=== PATIENT | female | born 1955 | race Caucasian/White ===

== ENCOUNTER → 2018-06-10 | Outpatient (CLI) | payer BC ==
--- NOTE | 2018-06-10 15:58 | RADIOLOGY REPORT (SQ) ---
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 RADIONUCLIDE AND DOSE: 21.7 millicuries Tc99m MDP. The route of agent administration: Intravenous. ADDITIONAL DRUGS AND DOSES: None. TECHNIQUE: Routine delayed images at 3 HOURS post radionuclide injection acquired of the bony skelet on including anterior and posterior whole-body projections and additional focused images as needed. LIMITATIONS: None. FINDINGS: BONES: Increased uptake is seen at the bilateral knees, and along the right T11 costoverte bral joint and right T12-L1 facet joint. Increased uptake at the bilateral feet and ankles. These a re in characteristic areas for osteoarthritis. Increased uptake in the sternum is present, abnormal but nonspecific. This could represent metastati c disease. There is increased uptake at the S1 level in the midline. This could be related to degenerative disc changes at L5-S1, or bony metastatic disease at the S1 level. KIDNEYS: Symmetric excretion without obstruction. OTHER: No other significant finding. IMPRESSION: Sternal and S1 bony uptake, may represent metastatic disease. Other areas of increased uptake are in characteristic locations of osteoarthritis COMMENT: Quality measure 147: No available prior imaging studies for comparison TECHNICAL DOCUMENTATION: JOB ID: [id number] [employer]- All Rights Reserved Reading location - IP/workstation name: [email or web address]
== END ==
LOC: RAD 10:33
PROVIDERS: ATTEND Internal Medicine Hematology & Oncology
DX: C50.811 Malignant neoplasm of overlapping sites of right female breast (principal)
CPT/HCPCS: 78306; A9561; Q9969

== ENCOUNTER → 2018-06-14 | Outpatient (CLI) | payer BC ==
--- NOTE | 2018-06-14 09:14 | RADIOLOGY REPORT (SQ) ---
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 TECHNIQUE: CT scan of the chest performed using helical scanning technique with dynamic intravenous contrast injection. Images reviewed with lung, soft tissue and bone windows. Reconstructed coronal a nd sagittal MPR images reviewed. All images stored on PACS. CT scan of the abdomen and pelvis performed with intravenous and with oral contrastusing helical scan sonam technique with dynamic intravenous contrast injection. Images reviewed with lung, soft tissue a nd bone windows. Reconstructed coronal and sagittal MPR images reviewed. Delayed images for evaluat ion of the urinary system also acquired and evaluated. All images stored on PACS. All CT scanners at this facility use dose modulation, iterative reconstruction, and/or weight based d osing when appropriate to reduce radiation dose to as low as reasonably achievable (ALARA). [facility]: Dose Right [facility]: CareDose [facility]: Dose Right [facility]: Teradose 4D [facility]: [employer] RADIATION DOSE: CT Rad equipment meets quality standard of care and radiation dose reduction techniq ues were employed. CTDIvol: 17.9 - 23.6 mGy. DLP: 3260 mGy-cm. . LIMITATIONS: None. FINDINGS: CHEST: LUNGS AND PLEURA: No opacities, nodules, masses. No pneumothorax. No effusions. HILAR AND MEDIASTINAL STRUCTURES: No identified masses or abnormal nodes. HEART AND VASCULAR STRUCTURES: No aneurysm or dissection. No central pulmonary emboli. No pericardi al effusion. HARDWARE: None. THYROID AND OTHER SOFT TISSUES: Right breast is diffusely abnormal, with skin thickening and nipple r etraction, with a plaque-like area of retroareolar tumor similar compared to 02/19/2018. BONES: Bony sclerosis in the rightward half of the T11 vertebral body and sternum from metastatic dis ease, similar compared to 02/19/2018 OTHER: No other significant finding. ABDOMEN AND PELVIS: LIVER: Normal size. No masses. No dilated ducts. SPLEEN: Normal size. No focal lesions. PANCREAS: No masses. No significant calcifications. No adjacent inflammation or peripancreatic fluid collections. Pancreatic duct not dilated. GALLBLADDER: Surgically absent ADRENAL GLANDS: No significant masses or asymmetry. RIGHT KIDNEY AND URETER: No solid masses. No significant calcification. No hydronephrosis or hydroure ter. LEFT KIDNEY AND URETER: No solid masses. No significant calcification. No hydronephrosis or hydrouret er. AORTA AND VESSELS: No aneurysm. No dissection. Renal arteries, SMA, celiac without stenosis. RETROPERITONEUM: No retroperitoneal adenopathy, hemorrhage or masses. BOWEL AND PERITONEAL CAVITY: Patient drank oral contrast. No CT evidence of bowel obstruction or luis e intraperitoneal air or fluid. Scattered colonic diverticuli without CT signs of acute diverticulit is APPENDIX: Not identified, surgically absent ABDOMINAL WALL: Right upper quadrant 1.7 cm abdominal wall defect axial image 42. Mesenteric/omental fat protrudes through the defect. No bowel in the hernia sac PELVIS: Post hysterectomy. Profound pelvic floor insufficiency. No masses or adenopathy. BONES: Sclerosis in the rightward half of the L1 vertebral body, midline S1 level and right ischium f rom bony metastatic disease, unchanged from 02/19/2018 OTHER: No other significant finding. IMPRESSION: Locally advanced right breast cancer with nipple retraction and plaque-like mass in the right retroareolar region Bony metastatic disease in the sternum, T11, L1, S1, and ischium Post cholecystectomy hysterectomy and appendectomy. Right upper quadrant fat containing hernia TECHNICAL DOCUMENTATION: JOB ID: [id number] Quality ID # 436: Final reports with documentation of one or more dose reduction techniques (e.g., Au tomated exposure control, adjustment of the mA and/or kV according to patient size, use of iterative reconstruction technique) 2010 [employer]- All Rights Reserved Reading location - IP/workstation name: [email or web address]
--- NOTE | 2018-06-14 09:20 | RADIOLOGY REPORT (SQ) ---
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 TECHNIQUE: Axial images acquired through the brain with intravenous contrast. Images reviewed with b one, brain and subdural windows. Additional sagittal and coronal reconstructions were generated. Brenna ges stored on PACS. All CT scanners at this facility use dose modulation, iterative reconstruction, and/or weight based d osing when appropriate to reduce radiation dose to as low as reasonably achievable (ALARA). [facility]: Dose Right [facility]: CareDose [facility]: Dose Right [facility]: Teradose 4D [facility]: [employer] CONTRAST TYPE AND DOSE: 100 mL IV Omnipaque 350- low osmolar. RENAL FUNCTION: GFR > 60. RADIATION DOSE: CT Rad equipment meets quality standard of care and radiation dose reduction techniq ues were employed. CTDIvol: 48.6 mGy. DLP: 930 mGy-cm.. LIMITATIONS: None. FINDINGS: VENTRICLES: Normal size and contour. CEREBRUM: No masses. No hemorrhage. No midline shift. Normal meeks/white matter differentiation. No ev idence for acute infarction. No enhancing lesions. CEREBELLUM: No masses. No hemorrhage. No alteration of density. No evidence for acute infarction. No enhancing lesions. EXTRA-AXIAL SPACES: No fluid collections. No enhancing lesions. ORBITS AND GLOBE: No intra- or extraconal masses. Normal contour of globe without masses. CALVARIUM: 2 cm sclerotic lesion right parietal bone from metastatic disease. PARANASAL SINUSES: No fluid or mucosal thickening. SOFT TISSUES: No mass or hematoma. OTHER: Right mastoid fluid is present IMPRESSION: No CT evidence of brain parenchymal metastatic lesions. Right parietal calvarial sclero tic metastatic lesion from patient's known breast cancer EVIDENCE OF ACUTE STROKE: NO. TECHNICAL DOCUMENTATION: JOB ID: [id number] Quality ID # 436: Final reports with documentation of one or more dose reduction techniques (e.g., Au tomated exposure control, adjustment of the mA and/or kV according to patient size, use of iterative reconstruction technique) 2010 [employer]- All Rights Reserved Reading location - IP/workstation name: [facility]
== END ==
LOC: RAD 07:35
PROVIDERS: ATTEND Internal Medicine Hematology & Oncology
DX: C50.811 Malignant neoplasm of overlapping sites of right female breast (principal)
CPT/HCPCS: 70460; 71260; 74177

== ENCOUNTER → 2018-09-12 | Outpatient (CLI) | payer BC, MEDICAID ==
--- NOTE | 2018-09-12 16:39 | XCELERA REPORT ---
[address] [address] Upper Extremity Venous Evaluation Name: YAMILE BROWN Age: 63 yrs Gender: Female : 1955 Patient Status: Outpatient Patient Location: Study Date: 09/12/2018 02:49 PM Procedure: Unilateral duplex scan of the right upper extremity veins was performed, including responses to compression and other maneuvers. Reason For Study: SWELLING RIGHT ARM Ordering Physician: JAVED VALENTIN Performed By: Silvia Diaz Right Side Venous Evaluation Normal vessel filling wall to wall, compression and augmentation as well as Colour flow down to the forearm veins. Interpretation Summary Normal compression, patency, spontaneous and phasic flow of the right upper extremity veins. : JAVED VALENTIN > Keith Avalos
== END ==
LOC: SP 13:31
PROVIDERS: ATTEND Internal Medicine Hematology & Oncology
DX: M79.621 Pain in right upper arm (principal); M79.89 Other specified soft tissue disorders
CPT/HCPCS: 93971

== ENCOUNTER → 2018-12-03 | Outpatient (CLI) | payer MEDICAID ==
--- NOTE | 2018-12-03 10:40 | RADIOLOGY REPORT (SQ) ---
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 TECHNIQUE: CT scan of the chest performed using helical scanning technique with dynamic intravenous contrast injection. Images reviewed with lung, soft tissue and bone windows. Reconstructed coronal a nd sagittal MPR images reviewed. All images stored on PACS. CT scan of the abdomen and pelvis performed with intravenous and with oral contrastusing helical scan sonam technique with dynamic intravenous contrast injection. Images reviewed with lung, soft tissue a nd bone windows. Reconstructed coronal and sagittal MPR images reviewed. Delayed images for evaluat ion of the urinary system also acquired and evaluated. All images stored on PACS. All CT scanners at this facility use dose modulation, iterative reconstruction, and/or weight based d osing when appropriate to reduce radiation dose to as low as reasonably achievable (ALARA). [facility]: Dose Right [facility]: CareDose [facility]: Dose Right [facility]: Teradose 4D [facility]: [employer] RADIATION DOSE: CT Rad equipment meets quality standard of care and radiation dose reduction techniq ues were employed. CTDIvol: 12.7 - 16.3 mGy. DLP: 2249 mGy-cm. . LIMITATIONS: None. FINDINGS: CHEST: LUNGS AND PLEURA: Motion artifact. Chronic volume loss/scar in right middle lobe, likely post radiat ion change. This looks similar to prior. No developing nodules or masses. No new infiltrates or pl eural fluid. HILAR AND MEDIASTINAL STRUCTURES: No identified masses or abnormal nodes. HEART AND VASCULAR STRUCTURES: Cardiac enlargement. No pericardial effusion or significant coronary calcification. Normal caliber aorta. HARDWARE: None. THYROID AND OTHER SOFT TISSUES: No thyroid lesions. Postsurgical volume loss right breast. BONES: Patchy areas of sclerosis, particularly in the sternum. This looks chronic. OTHER: No other significant finding. ABDOMEN AND PELVIS: LIVER: Fatty. No mass. SPLEEN: Normal size. No focal lesions. PANCREAS: No masses. No significant calcifications. No adjacent inflammation or peripancreatic fluid collections. Pancreatic duct not dilated. GALLBLADDER: Surgically absent. ADRENAL GLANDS: No significant masses or asymmetry. RIGHT KIDNEY AND URETER: No solid masses. No significant calcification. No hydronephrosis or hydroure ter. LEFT KIDNEY AND URETER: No solid masses. No significant calcification. No hydronephrosis or hydrouret er. AORTA AND VESSELS: No aneurysm. No dissection. Renal arteries, SMA, celiac without stenosis. RETROPERITONEUM: No retroperitoneal adenopathy, hemorrhage or masses. BOWEL AND PERITONEAL CAVITY: No masses or inflammatory changes. No free fluid or peritoneal masses. APPENDIX: Surgically absent. ABDOMINAL WALL: Fat containing right abdominal ventral hernia, chronic. No bowel containing hernia o r abdominal wall mass. PELVIS: No mass or free fluid. Normal bladder. BONES: Patchy areas of bone sclerosis, similar to prior. OTHER: No other significant finding. IMPRESSION: 1. Stable osseous lesions. Otherwise, no acute or suspicious thoracic abnormality. Probable post tr eatment changes in the right lung. 2. Stable osseous lesions. Otherwise, no acute or suspicious abdominopelvic abnormality. TECHNICAL DOCUMENTATION: JOB ID: [id number] Quality ID # 436: Final reports with documentation of one or more dose reduction techniques (e.g., Au tomated exposure control, adjustment of the mA and/or kV according to patient size, use of iterative reconstruction technique) 2010 [employer]- All Rights Reserved Reading location - IP/workstation name: [email or web address]
--- NOTE | 2018-12-03 15:37 | RADIOLOGY REPORT (SQ) ---
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 The route of agent administration: Intravenous. ADDITIONAL DRUGS AND DOSES: None. TECHNIQUE: Routine delayed images at 3 hour post radionuclide injection acquired of the bony skeleto n including anterior and posterior whole-body projections and additional focused images as needed. LIMITATIONS: None. FINDINGS: BONES: There is increased uptake in the region of S1 consistent with a sclerotic lesion de monstrated on CT. There is increased uptake in the lower sternum consistent with metastasis. Uptake in the knees is symmetric consistent with degenerative disease. Similar findings are present should ers. KIDNEYS: Symmetric excretion without obstruction. OTHER: No other significant finding. IMPRESSION: Bony metastatic disease involving the sternum as well as at the S1 level. The findings are stable when compared to 06/10/2018 COMMENT: Quality measure 147: Current bone scan is compared with any available plain radiographs, p rior bone scans, and CT/MRI. TECHNICAL DOCUMENTATION: JOB ID: [id number] [employer]- All Rights Reserved Reading location - IP/workstation name: [email or web address]
== END ==
LOC: RAD 09:19
PROVIDERS: ATTEND Physician Assistant Medical
DX: C50.812 Malignant neoplasm of overlapping sites of left female breast (principal); C50.811 Malignant neoplasm of overlapping sites of right female breast
CPT/HCPCS: 78306; 71260; 74177; A9561; Q9969

== ENCOUNTER → 2019-09-17 | Outpatient (CLI) | payer BC, MEDICAID ==
--- NOTE | 2019-09-17 12:15 | RADIOLOGY REPORT (SQ) ---
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 CONTRAST TYPE AND DOSE: contrast/concentration: Isovue 350.00 mg/ml; Total Contrast Delivered: 100.0 ml; Total Saline Delivered: 72.0 ml RENAL FUNCTION: GFR > 60. TECHNIQUE: CT scan of the chest performed using helical scanning technique with dynamic intravenous contrast injection. Images reviewed with lung, soft tissue and bone windows. Reconstructed coronal a nd sagittal MPR images reviewed. All images stored on PACS. CT scan of the abdomen and pelvis performed with intravenous and with oral contrastusing helical scan sonam technique with dynamic intravenous contrast injection. Images reviewed with lung, soft tissue a nd bone windows. Reconstructed coronal and sagittal MPR images reviewed. Delayed images for evaluat ion of the urinary system also acquired and evaluated. All images stored on PACS. All CT scanners at this facility use dose modulation, iterative reconstruction, and/or weight based d osing when appropriate to reduce radiation dose to as low as reasonably achievable (ALARA). [facility]: Dose Right [facility]: CareDose [facility]: Dose Right [facility]: Teradose 4D [facility]: [employer] RADIATION DOSE: CT Rad equipment meets quality standard of care and radiation dose reduction techniq ues were employed. CTDIvol: 16.0 - 23.2 mGy. DLP: 4869 mGy-cm. . LIMITATIONS: None. FINDINGS: CHEST: LUNGS AND PLEURA: Chronic areas of scar with chronic mild volume loss in the right lower lobe. Simil ar appearance to prior without developing lesions or pleural disease. HILAR AND MEDIASTINAL STRUCTURES: No identified masses or abnormal nodes. HEART AND VASCULAR STRUCTURES: Cardiomegaly. No aortic aneurysm or dissection or central pulmonary e mbolus. No pericardial effusion. No significant Coronary calcification. HARDWARE: None. THYROID AND OTHER SOFT TISSUES: Mild thyromegaly without mass. Status post right mastectomy. No roger st wall mass. BONES: Slight deformity and sclerosis in the sternum is likely related to old trauma. This looks chr onic. OTHER: No other significant finding. ABDOMEN AND PELVIS: LIVER: Diffusely fatty without lesions. SPLEEN: Normal size. No focal lesions. PANCREAS: No masses. No significant calcifications. No adjacent inflammation or peripancreatic fluid collections. Pancreatic duct not dilated. GALLBLADDER: Surgically absent. ADRENAL GLANDS: No significant masses or asymmetry. RIGHT KIDNEY AND URETER: No solid masses. No significant calcification. No hydronephrosis or hydroure ter. LEFT KIDNEY AND URETER: No solid masses. No significant calcification. No hydronephrosis or hydrouret er. AORTA AND VESSELS: No aneurysm. No dissection. Renal arteries, SMA, celiac without stenosis. RETROPERITONEUM: No retroperitoneal adenopathy, hemorrhage or masses. BOWEL AND PERITONEAL CAVITY: No masses or inflammatory changes. No free fluid or peritoneal masses. APPENDIX: Surgically absent. ABDOMINAL WALL: No masses. No hernias. PELVIS: Small iliac chain and pelvic subcentimeter stable lymph nodes without progression. Decompres sed and markedly thick-walled bladder. This looks progressive compared to prior and may be accentuat ed by a nearly empty state. No pelvic free fluid. BONES: Changes look relatively chronic, related to spondylosis and old S1 upper endplate fracture. OTHER: No other significant finding. IMPRESSION: 1. Chronic bone changes, as above. 2. Stable chest otherwise without acute or suspicious abnormality. 3. Stable abdomen and pelvis otherwise without acute or suspicious abnormality. TECHNICAL DOCUMENTATION: JOB ID: [id number] Quality ID # 436: Final reports with documentation of one or more dose reduction techniques (e.g., Au tomated exposure control, adjustment of the mA and/or kV according to patient size, use of iterative reconstruction technique) 2010 [employer]- All Rights Reserved Reading location - IP/workstation name: [email or web address]
--- NOTE | 2019-09-17 12:36 | RADIOLOGY REPORT (SQ) ---
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 The route of agent administration: Intravenous. ADDITIONAL DRUGS AND DOSES: None. TECHNIQUE: Routine delayed images at 3 hours post radionuclide injection acquired of the bony skelet on including anterior and posterior whole-body projections and additional focused images as needed. LIMITATIONS: None. FINDINGS: BONES: Sacral uptake on the prior study has decreased. Uptake in the right side of the lo wer spine has decreased. Sternal uptake on the prior study has decreased. No new areas of abnormal skeletal uptake. KIDNEYS: Symmetric excretion without obstruction. OTHER: No other significant finding. IMPRESSION: Normal bone scan. No significant abnormal uptake is seen at this time. COMMENT: Quality measure 147: Current bone scan is compared with any available plain radiographs, p rior bone scans, and CT/MRI. TECHNICAL DOCUMENTATION: JOB ID: [id number] 2010 [employer]- All Rights Reserved Reading location - IP/workstation name: [email or web address]
== END ==
LOC: RAD 07:53
PROVIDERS: ATTEND Internal Medicine Hematology & Oncology
DX: C50.812 Malignant neoplasm of overlapping sites of left female breast (principal); C50.811 Malignant neoplasm of overlapping sites of right female breast; I51.7 Cardiomegaly
CPT/HCPCS: 78306; 71260; 74177; A9561; Q9969